=== PATIENT | female | born 1970 | race African-American/Black ===

== ENCOUNTER 2025-05-12 06:40 | Emergency (ER) | payer MEDICAID, OTHER ==
[~2025-05-12] VITALS: Ht 167.6 cm; Wt 66.0 kg
[2025-05-12 06:46] VITALS: O2SAT 98
[2025-05-12 07:33] LABS: HEMATOCRIT. 45.0 % (36.0-48.0); HEMOGLOBIN. 14.3 g/dL (12.0-16.0); MEAN PLATELET VOLUME 9.9 fl (7.4-10.4); PLATELET 260 x1000/uL (130-400); RED BLOOD CELL COUNT 5.31 mill/uL (4.2-5.4); RED CELL DISTRIBUTION WIDTH 13.4 % (11.6-14.6)
[2025-05-12] MEDS: KETOROLAC 15MG/ML VIAL IV ONE (07:46)
[2025-05-12 07:47] LABS: CREATININE 1.1 mg/dL (0.6-1.0)
[2025-05-12] MEDS: SODIUM CHLORIDE 0.9% 1,000 ML IV ONE (07:47)
[2025-05-12] MEDS: MORPHINE SULFATE 4 MG/ML INJ (FOR IV/IM USE) IV ONE (07:47)
[2025-05-12] MEDS: ONDANSETRON HCL 4MG/2ML INJ IV ONE (07:47)
[2025-05-12 07:48] LABS: UREA NITROGEN BLOOD 10 mg/dL (9-23)
[2025-05-12 08:28] LABS: BAND% 4.0 % (1.0-6.0); LYMPHOCYTES % MANUAL 11.0 % (20.0-60.0); MONOCYTES % MANUAL 3.0 % (2.0-8.0); NEUTROPHILS % MANUAL 82.0 % (45.0-75.0); PLATELET ESTIMATE NORMAL
[2025-05-12 10:39] LABS: PROTEIN TOTAL 7.8 g/dL (6.0-8.3)
[2025-05-12 10:41] LABS: ASPARTATE AMINOTRANSFERASE 36 IU/L (<34); BILIRUBIN DIRECT 0.2 mg/dL (<=3.0); BILIRUBIN TOTAL 0.9 mg/dL (0.1-1.0)
[2025-05-12 11:33] VITALS: TEMP 37; O2SAT 100
[2025-05-12 11:38] VITALS: BP 122/72; PULSE 120; RESP 20; TEMP 98.60
[2025-05-12] MEDS ORDERED: TOPUD PO (13:22)
[2025-05-12] MEDS ORDERED: ONDA-239 PO (13:22)
[2025-05-12] MEDS ORDERED: LOPE2CAP MT (13:22)
[2025-05-12] MEDS ORDERED: IBUP-2028 MT (13:22)
== END 2025-05-12 14:25 | disposition home or self-care (01) ==
LOC: ER 06:40
DX: R10.84 Generalized abdominal pain (principal); R11.2 Nausea with vomiting, unspecified; R19.7 Diarrhea, unspecified; E03.9 Hypothyroidism, unspecified
CPT/HCPCS: 99285; 74176; 96374; 96375; 96361; 80076; 80048; 83690; 85025; 36415; J1885; J2405; J2270; J7030